=== PATIENT | female | born 1965 | race Caucasian/White ===

== ENCOUNTER 2021-06-07 18:40 | Inpatient (IN) | payer BC ==
[~2021-06-07] VITALS: Ht 162.6 cm; Wt 81.8 kg
[2021-06-07] MEDS ORDERED: dexamethasone 4mg tablet PO ONE (20:55)
[2021-06-07] MEDS ORDERED: iohexol 350MG/ML 100ml bottle IV ONE (21:06)
[2021-06-07 21:25] LABS: BASOPHILS # (AUTO) 0.1 X10'3 (0-0.2); BASOPHILS % (AUTO) 0.6 % (0-1); EOSINOPHILS # (AUTO) 0.2 X10'3 (0-0.9); EOSINOPHILS % (AUTO) 1.8 % (0-6); HEMATOCRIT 40.9 % (35.0-45.0); HEMOGLOBIN 13.7 g/dl (12.0-16.0); LYMPHOCYTES # (AUTO) 1.6 X10'3 (1.1-4.8); LYMPHOCYTES % (AUTO) 15.5 % (21-51); MEAN CORPUSCULAR HGB CONC 33.5 g/dL (33.0-36.5); MEAN CORPUSCULAR VOLUME 92.7 FL (78-98); MONOCYTES # (AUTO) 1.1 X10'3 (0-0.9); MONOCYTES % (AUTO) 10.8 % (2-12); NEUTROPHILS # (AUTO) 7.5 X10'3 (1.8-7.7); NEUTROPHILS % (AUTO) 71.3 % (42-75); PLATELET COUNT 317 X10'3 (140-440); RED BLOOD COUNT 4.41 X10'6 (4.20-5.60); RED CELL DISTRIBUTION WIDTH 13.3 % (11.5-14.5); WHITE BLOOD COUNT 10.5 X10'3 (4.5-11.0)
[2021-06-07 21:28] LABS: PARTIAL THROMBOPLASTIN TIME 24 SECONDS (22-32)
[2021-06-07 21:43] LABS: ALANINE AMINOTRANSFERASE 84 U/L (12-78); ALBUMIN 2.8 G/DL (3.4-5.0); ALBUMIN/GLOBULIN RATIO 0.5 (1.1-1.5); ALKALINE PHOSPHATASE 308 IU/L (46-116); ANION GAP 11 (8-16); ASPARTATE AMINO TRANSFERASE 44 U/L (10-37); BILIRUBIN,TOTAL 0.5 MG/DL (0.1-1.0); BLOOD UREA NITROGEN 12 MG/DL (7-18); BUN/CREATININE RATIO 14.8 (6.6-38.0); C-REACTIVE PROTEIN 4.99 MG/DL (0.0-0.5); CALCIUM 8.8 MG/DL (8.5-10.1); CHLORIDE 101 MMOL/L (99-107); CREATININE 0.81 MG/DL (0.40-0.90); GLUCOSE 105 MG/DL (70-104); LACTATE DEHYDROGENASE 534 U/L (81-234); SODIUM 147 MMOL/L (135-145); TOTAL PROTEIN 7.9 G/DL (6.4-8.2); eGFR 73 ML/MIN
[2021-06-07 21:46] LABS: POTASSIUM 2.3 MMOL/L (3.5-5.1)
[2021-06-07 22:00] VITALS: BP 119/66
[2021-06-07] MEDS ORDERED: heparin 10,000 units/1 ML INJ IV ONE ×2 (22:25→22:35)
[2021-06-07] MEDS ORDERED: heparin 25,000 UNIT/250ml bag 250 ML IV SCH (22:25)
[2021-06-07] MEDS ORDERED: heparin 10,000 units/1 ML INJ IV PRN (22:25)
[2021-06-07] MEDS ORDERED: ondansetron/PF 4mg/2ml inj IV PRN (23:00)
[2021-06-07] MEDS ORDERED: PERFLUTREN PROTEIN-A MICROSPHR (Optison) 0.22 MG/ML 3ML VIAL IV PRN (23:00)
[2021-06-07] MEDS ORDERED: magnesium hydroxide 30ml (MOM) UD suspension PO PRN (23:00)
[2021-06-07] MEDS ORDERED: acetaminophen 325mg tablet PO PRN (23:00)
[2021-06-07] MEDS ORDERED: potassium Cl 40MEQ/1/2NS 520ml 520 ML IV PRN ×2 (23:00)
[2021-06-07] MEDS ORDERED: normal saline 1000ml 1,000 ML IV SCH (23:00)
[2021-06-07] MEDS ORDERED: potassium Cl 20 mEq SR tablet PO PRN (23:00)
[2021-06-07] MEDS ORDERED: mag hydrox/Alum hydrox/simeth 30ml oral suspension PO PRN (23:00)
[2021-06-07] MEDS ORDERED: potassium Cl 10 mEq/100mL bag IV ONE (23:55)
[2021-06-08] VITALS (7 sets, daily range): BP systolic 147–203; BP diastolic 85–128
[2021-06-08] MEDS: potassium Cl 20 mEq SR tablet PO PRN ×5 (00:02→19:28)
[2021-06-08] MEDS ORDERED: NO HOME MEDS (01:35)
[2021-06-08 03:08] LABS: BASOPHILS # (AUTO) 0.1 X10'3 (0-0.2); EOSINOPHILS # (AUTO) 0.1 X10'3 (0-0.9); EOSINOPHILS % (AUTO) 0.5 % (0-6); HEMATOCRIT 40.3 % (35.0-45.0); HEMOGLOBIN 13.3 g/dl (12.0-16.0); LYMPHOCYTES # (AUTO) 1.2 X10'3 (1.1-4.8); LYMPHOCYTES % (AUTO) 11.6 % (21-51); MEAN CORPUSCULAR HEMOGLOBIN 30.8 PG (27.0-31.0); MEAN CORPUSCULAR VOLUME 93.3 FL (78-98); MEAN PLATELET VOLUME 8.2 FL (7.4-10.4); MONOCYTES # (AUTO) 0.4 X10'3 (0-0.9); MONOCYTES % (AUTO) 3.9 % (2-12); NEUTROPHILS # (AUTO) 8.7 X10'3 (1.8-7.7); PLATELET COUNT 287 X10'3 (140-440); RED BLOOD COUNT 4.32 X10'6 (4.20-5.60); RED CELL DISTRIBUTION WIDTH 13.2 % (11.5-14.5); WHITE BLOOD COUNT 10.4 X10'3 (4.5-11.0)
[2021-06-08 03:35] LABS: ALANINE AMINOTRANSFERASE 73 U/L (12-78); ALBUMIN 2.7 G/DL (3.4-5.0); ALBUMIN/GLOBULIN RATIO 0.6 (1.1-1.5); ALKALINE PHOSPHATASE 278 IU/L (46-116); ANION GAP 10 (8-16); ASPARTATE AMINO TRANSFERASE 45 U/L (10-37); BILIRUBIN,TOTAL 0.5 MG/DL (0.1-1.0); BLOOD UREA NITROGEN 12 MG/DL (7-18); BUN/CREATININE RATIO 15.6 (6.6-38.0); CALCIUM 8.7 MG/DL (8.5-10.1); CHLORIDE 103 MMOL/L (99-107); CREATININE 0.77 MG/DL (0.40-0.90); GLUCOSE 169 MG/DL (70-104); SODIUM 146 MMOL/L (135-145); TOTAL CARBON DIOXIDE 33.5 MMOL/L (24-32); TOTAL PROTEIN 7.5 G/DL (6.4-8.2); eGFR 77 ML/MIN
[2021-06-08 03:46] LABS: POTASSIUM 2.8 MMOL/L (3.5-5.1)
[2021-06-08] MEDS ORDERED: metoprolol tartrate 12.5mg (1/2 tablet) PO ONE (05:45)
--- NOTE | 2021-06-08 05:46 | NUR ---
Pt's blood pressure was 180/[address] Solis and he instructed to give her the metoprolol that is due at 0800 now. [id number].
[2021-06-08] MEDS: metoprolol tartrate 12.5mg (1/2 tablet) PO SCH ×2 (06:25→19:28)
--- NOTE | 2021-06-08 06:50 | NUR ---
Patient in room [facility] 4022. I have received report from ALINA Wheeler and had the opportunity to ask questions and assume patient care.
--- NOTE | 2021-06-08 06:59 | NUR ---
Problems reprioritized. Patient report given, questions answered & plan of care reviewed with Lidia RN.
[2021-06-08] MEDS: K and/or MAG REPLACEMENT MC SCH ×2 (07:57→19:29)
[2021-06-08] MEDS ORDERED: dexamethasone inj 6 MG in normal saline 50ml IV soln 50 ML IV SCH (08:00)
[2021-06-08] MEDS ORDERED: dexamethasone sod phosphate 4mg/ml inj. IV SCH (08:00)
[2021-06-08] MEDS: docusate sod 100mg capsule PO SCH ×2 (08:00→19:29)
[2021-06-08 08:25] LABS: HEMATOCRIT 37.6 % (35.0-45.0); HEMOGLOBIN 12.4 g/dl (12.0-16.0); MEAN CORPUSCULAR HEMOGLOBIN 30.7 PG (27.0-31.0); MEAN CORPUSCULAR VOLUME 93.2 FL (78-98); PLATELET COUNT 278 X10'3 (140-440); RED BLOOD COUNT 4.03 X10'6 (4.20-5.60); RED CELL DISTRIBUTION WIDTH 13.2 % (11.5-14.5); WHITE BLOOD COUNT 9.9 X10'3 (4.5-11.0)
[2021-06-08 08:28] LABS: BLOOD UREA NITROGEN 14 MG/DL (7-18); eGFR 86 ML/MIN
[2021-06-08] MEDS: enoxaparin 80mg/0.8ml syringe SUBCUT SCH ×2 (08:44→19:27)
[2021-06-08] MEDS ORDERED: guaiFENesin/DM 10ml UD oral syrup PO PRN (10:50)
[2021-06-08] MEDS: LORazepam 0.5 MG tablet PO PRN ×2 (14:42→22:37)
--- NOTE | 2021-06-08 18:05 | NUR ---
Problems reprioritized. Patient report given, questions answered & plan of care reviewed with ALINA Wheeler.
[2021-06-08] MEDS ORDERED: guaiFENesin 100mg/DM 10mg oral syrup 5 ML CUP PO PRN (18:47)
[2021-06-08] MEDS: guaiFENesin 100mg/DM 10mg oral syrup 5 ML CUP PO PRN (19:26)
[2021-06-08] MEDS: dexamethasone 4mg/ml inj IV SCH (19:29)
[2021-06-08] MEDS ORDERED: metoprolol tartrate 50mg tablet PO ONE (21:30)
[2021-06-09 01:30] VITALS: BP 190/100
[2021-06-09] MEDS ORDERED: amLODIPine 5mg tablet PO ONE (01:35)
--- NOTE | 2021-06-09 01:42 | NUR ---
Pt's BP was 190/[address] Solis and he ordered a one time dose of Norvasc 5. Will re-check BP in 30 Min.
[2021-06-09 02:00] VITALS: BP 190/100
[2021-06-09 02:27] VITALS: BP 158/91
[2021-06-09] MEDS: LORazepam 0.5 MG tablet PO PRN (04:36)
[2021-06-09 05:23] VITALS: BP 169/97
[2021-06-09] MEDS: guaiFENesin 100mg/DM 10mg oral syrup 5 ML CUP PO PRN ×2 (05:26→09:31)
--- NOTE | 2021-06-09 06:21 | NUR ---
Problems reprioritized. Patient report given, questions answered & plan of care reviewed with Rajinder FULLER.
[2021-06-09 07:40] VITALS: BP 180/117
[2021-06-09] MEDS: K and/or MAG REPLACEMENT MC SCH (08:00)
[2021-06-09 08:12] LABS: BASOPHILS # (AUTO) 0.1 X10'3 (0-0.2); BASOPHILS % (AUTO) 0.6 % (0-1); EOSINOPHILS % (AUTO) 0.2 % (0-6); HEMATOCRIT 32.3 % (35.0-45.0); HEMOGLOBIN 10.8 g/dl (12.0-16.0); LYMPHOCYTES # (AUTO) 2.1 X10'3 (1.1-4.8); LYMPHOCYTES % (AUTO) 18.4 % (21-51); MEAN CORPUSCULAR HEMOGLOBIN 30.9 PG (27.0-31.0); MEAN CORPUSCULAR HGB CONC 33.6 g/dL (33.0-36.5); MEAN CORPUSCULAR VOLUME 92.1 FL (78-98); MEAN PLATELET VOLUME 8.7 FL (7.4-10.4); MONOCYTES # (AUTO) 0.7 X10'3 (0-0.9); MONOCYTES % (AUTO) 6.3 % (2-12); NEUTROPHILS # (AUTO) 8.4 X10'3 (1.8-7.7); NEUTROPHILS % (AUTO) 74.5 % (42-75); PLATELET COUNT 283 X10'3 (140-440); RED BLOOD COUNT 3.51 X10'6 (4.20-5.60); RED CELL DISTRIBUTION WIDTH 13.3 % (11.5-14.5); WHITE BLOOD COUNT 11.2 X10'3 (4.5-11.0)
[2021-06-09] MEDS: docusate sod 100mg capsule PO SCH (08:28)
[2021-06-09] MEDS: dexamethasone 4mg/ml inj IV SCH (08:28)
[2021-06-09] MEDS: enoxaparin 80mg/0.8ml syringe SUBCUT SCH ×2 (08:28→17:46)
[2021-06-09] MEDS: metoprolol tartrate 12.5mg (1/2 tablet) PO SCH (08:29)
[2021-06-09 08:45] LABS: ALANINE AMINOTRANSFERASE 62 U/L (12-78); ALBUMIN 2.4 G/DL (3.4-5.0); ALBUMIN/GLOBULIN RATIO 0.6 (1.1-1.5); ALKALINE PHOSPHATASE 196 IU/L (46-116); ANION GAP 7 (8-16); ASPARTATE AMINO TRANSFERASE 28 U/L (10-37); BILIRUBIN,TOTAL 0.3 MG/DL (0.1-1.0); BLOOD UREA NITROGEN 16 MG/DL (7-18); BUN/CREATININE RATIO 26.7 (6.6-38.0); CALCIUM 8.4 MG/DL (8.5-10.1); CHLORIDE 110 MMOL/L (99-107); GLUCOSE 124 MG/DL (70-104); POTASSIUM 4.6 MMOL/L (3.5-5.1); SODIUM 146 MMOL/L (135-145); TOTAL CARBON DIOXIDE 28.6 MMOL/L (24-32); TOTAL PROTEIN 6.4 G/DL (6.4-8.2); eGFR > 90 ML/MIN
--- NOTE | 2021-06-09 12:57 | NUR ---
O2 Sat at rest on room air:__90_% If below 89%: Recovery O2 Sat at rest on __1_LPM:_92__%:___% via N/C____(mask/nasal cannula, etc..) No further documentation is necessary. If O2 Sat did not drop below 89% on room air,ambulate patient on room air. O2 Sat while ambulating on room air:__85_% Recovery O2 Sat while ambulating on __3_LPM:__89_% No further documentation is necessary. If patient does not drop below 89% while ambulating, he/she does not qualify for home O2.
[2021-06-09] MEDS ORDERED: DEC4T PO (13:26)
[2021-06-09] MEDS ORDERED: FURO-150 PO (13:26)
[2021-06-09] MEDS ORDERED: APIX5TAB3 PO (13:26)
[2021-06-09 15:54] VITALS: BP 181/96
== END 2021-06-09 18:10 | disposition home or self-care (01) | DRG 177 ==
LOC: ER 18:42 → ED HOLD 23:04 → ORTHO 4S 06-08 01:00
PROVIDERS: ADMIT Internal Medicine; ATTEND Internal Medicine
PROC: B32T1ZZ Computerized Tomography (CT Scan) of Left Pulmonary Artery using Low Osmolar Contrast (ICD-10-PCS; principal; 2021-06-07)
PROC: B3201ZZ Computerized Tomography (CT Scan) of Thoracic Aorta using Low Osmolar Contrast (ICD-10-PCS; 2021-06-07)
PROC: B32S1ZZ Computerized Tomography (CT Scan) of Right Pulmonary Artery using Low Osmolar Contrast (ICD-10-PCS; 2021-06-07)
DX: U07.1 COVID-19 (principal); I26.09 Other pulmonary embolism with acute cor pulmonale; J12.82 Pneumonia due to coronavirus disease 2019; J96.01 Acute respiratory failure with hypoxia; D68.69 Other thrombophilia; E87.6 Hypokalemia; Z79.01 Long term (current) use of anticoagulants; Z79.899 Other long term (current) drug therapy; Z90.710 Acquired absence of both cervix and uterus; Z88.0 Allergy status to penicillin
CPT/HCPCS: 36415; 71045; 71275; 80053; 82565; 83615; 83880; 84484; 84520; 85025; 85027; 85610; 85730; 86140; 87081; 93005; 93306; 99285; G0378; J1100; J1644; J1650; J3480; J7030; Q9967